=== PATIENT | female | born 1945 ===

== ENCOUNTER 2017-12-23 06:08 | Emergency (ER) | payer MEDICARE, BC ==
[2017-12-23 06:08] VITALS: BMI 28.3
--- NOTE | 2017-12-23 07:54 | ED PDOC ---
Arrival/HPI - General Chief Complaint: Eye Problem Time Seen by Provider: 12/23/17 07:10 - History of Present Illness Narrative History of Present Illness (Text): 72 y/o F presents with R eye pain since this morning. Patient awoke with severe pain in the R eye that has now largely subsided. She denies any vision change, states has not had vision other than light in that eye for years due to cataract. She denies trauma, discharge of pus, vomiting. Past Medical History - Reproductive Menopause: Yes - Cardiac Hx Hypertension: Yes Hx Pacemaker: No - Pulmonary Hx Respiratory Disorders: No - Neurological Hx Neurological Disorder: (H/O OF SHINGLES) - HEENT Hx HEENT Disorder: No (WEARS RX GLASSES) Hx Blind: Yes (rt eye) - Renal Hx Renal Disorder: No - Endocrine/Metabolic Hx Endocrine Disorders: No - Hematological/Oncological Hx Cancer: Yes (MULTIPLE MYELOMA) - Integumentary Hx Dermatological Disorder: No - Musculoskeletal/Rheumatological Hx Arthritis: Yes - Gastrointestinal Hx Gastrointestinal Disorders: (CONSTIPATION) Hx Gall Bladder Disease: Yes (CHOLECYSTECTOMY) - Genitourinary/Gynecological Hx Genitourinary Disorders: Yes (RIGHT OVARIAN MASS,FIBROIDS,CEASEREAN SECTION) - Psychiatric Hx Psychophysiologic Disorder: No Hx Emotional Abuse: No Hx Physical Abuse: No Hx Substance Use: No - Surgical History Hx Section: Yes Hx Cholecystectomy: Yes Hx Dilation and Curettage: Yes - Anesthesia Hx Anesthesia Reactions: No (demerol caused paralysis, nausea and vomit) Hx Malignant Hyperthermia: No - Suicidal Assessment Feels Threatened In Home Enviroment: No Family/Social History Family/Social History: No Known Family HX Smoking Status: Former Smoker Hx Alcohol Use: Yes Frequency of alcohol use: Socially Hx Substance Use: No Hx Substance Use Treatment: No Allergies/Home Meds Allergies/Adverse Reactions: Allergies meperidine [From Demerol] Allergy (Verified 12/23/17 06:30) ANAPHYLAXIS Home Medications: Home Meds Medication Instructions Recorded Confirmed Atorvastatin Calcium [Lipitor] 10 mg PO QPM 02/16/12 12/23/17 Clorazepate Dipotassium [Tranxene 3.75 mg PO BID 02/16/12 12/23/17 T-Tab] Bortezomib [Velcade] 3.5 mg IV 03/24/12 01/17/13 Amitriptyline [Elavil] 50 mg PO HS 12/23/17 12/23/17 Atenolol [Tenormin] 25 mg PO BID 12/23/17 12/23/17 Ranitidine HCl [Zantac] 150 mg PO HS 12/23/17 12/23/17 amLODIPine [Norvasc] 10 mg PO DAILY 12/23/17 12/23/17 Review of Systems - Physician Review All systems were reviewed & negative as marked: Yes - Review of Systems Constitutional: absent: Fevers Respiratory: absent: SOB Physical Exam - Physical Exam Narrative Physical Exam (Text): Gen: NAD Head: NC/AT Eyes: R eye cataract. EOMI. PERRL. Injected, no discharge. No hyphema. ENT: MMM Neck: Supple CV: Regular rate Lungs: CTA b/l Abd: Soft Neuro: Alert, no focal deficit Vital Signs Temp Pulse Resp BP Pulse Ox 12/23/17 08:21 98 F 80 17 157/88 H 100 12/23/17 08:19 98 F 80 17 157/88 H 100 12/23/17 06:25 97.9 F 99 H 18 140/93 H 98 Medical Decision Making ED Course and Treatment: Discussed case with Dr. La Boyle adult education professional who recommends patient go directly from ED to Ophtho office for full eye examination. Patient states she will do this. Disposition/Present on Arrival - Present on Arrival Any Indicators Present on Arrival: No History of DVT/PE: No History of Uncontrolled Diabetes: No Urinary Catheter: No History of Decub. Ulcer: No History Surgical Site Infection Following: None - Disposition Have Diagnosis and Disposition been Completed?: Yes Diagnosis: Eye pain Disposition: HOME/ ROUTINE Disposition Time: 07:48 Patient Plan: Discharge Condition: STABLE Discharge Instructions (ExitCare): Conjunctivitis ([place]) Referrals: Clifford Quiles MD [Staff Provider] - Follow up with primary Forms: [employer] (Burkinan)
[2017-12-23 08:20] VITALS: BP 157/88; PULSE 80; RESP 17; TEMP 98; O2SAT 100
== END 2017-12-23 08:23 | disposition home or self-care (01) ==
LOC: ED 06:08
DX: H57.11 Ocular pain, right eye (principal)